=== PATIENT | male | born 1955 | race African-American/Black ===

== ENCOUNTER 2018-05-22 07:38 | Day surgery (SDC) ==
[2018-05-22] MEDS: TETRACAINE 0.5% UNIT-DOSE OP PRN ×2 (09:20→09:45)
[2018-05-22] MEDS: BETADINE OPTH PREP OP PRN ×2 (09:20→09:45)
[2018-05-22] MEDS: CYCLOGYL 2% OPTH OP PRN ×3 (09:21→09:31)
[2018-05-22] MEDS ORDERED: ZOFRAN 4 MG/2 ML IVP ONE (09:27)
[2018-05-22] MEDS ORDERED: BRIMONIDINE TARTRATE 0.2% OPTH SOL OP PRN (09:27)
[2018-05-22] MEDS ORDERED: LIDOCAINE 1% 20 ML MDV ID STA (09:27)
[2018-05-22 09:34] VITALS: TEMP 98
[2018-05-22] MEDS: BSS WITH EPINEPHRINE OP ONE ×2 (09:50→10:02)
[2018-05-22] MEDS: LIDOCAINE 1%/PHENYLEPHRINE 1.5% BSS (SURGERY) INTRAOCULA ONE ×2 (09:51→10:02)
[2018-05-22] MEDS: DEX-MOXI-KETOR OPTH INJ 1/0.5/0.4 MG/ML IO ONE ×2 (09:51→10:02)
[2018-05-22] MEDS ORDERED: SUBLIMAZE ONE (09:53)
[2018-05-22] MEDS ORDERED: VERSED ONE (09:53)
[2018-05-24 08:55] VITALS: BP 128/68
== END 2018-05-22 10:55 | disposition home or self-care (01) ==
LOC: SURG 07:38
PROVIDERS: ATTEND Ophthalmology
DX: H25.812 Combined forms of age-related cataract, left eye (principal)

== ENCOUNTER 2018-06-05 08:04 | Day surgery (SDC) ==
[2018-06-05] MEDS: TETRACAINE 0.5% UNIT-DOSE OP PRN ×2 (09:35→10:14)
[2018-06-05] MEDS: BETADINE OPTH PREP OP PRN ×2 (09:35→10:14)
[2018-06-05] MEDS: CYCLOGYL 2% OPTH OP PRN ×3 (09:36→09:46)
[2018-06-05] MEDS ORDERED: DEX-MOXI-KETOR OPTH INJ 1/0.5/0.4 MG/ML IO ONE (09:41)
[2018-06-05] MEDS ORDERED: LIDOCAINE 1%/PHENYLEPHRINE 1.5% BSS (SURGERY) INTRAOCULA ONE (09:41)
[2018-06-05] MEDS ORDERED: LIDOCAINE 1% 20 ML MDV ID STA (09:41)
[2018-06-05] MEDS ORDERED: ZOFRAN 4 MG/2 ML IVP ONE (09:41)
[2018-06-05] MEDS ORDERED: BSS WITH EPINEPHRINE OP ONE (09:41)
[2018-06-05] MEDS ORDERED: BRIMONIDINE TARTRATE 0.2% OPTH SOL OP PRN (09:41)
[2018-06-05] MEDS ORDERED: VERSED ONE (10:22)
[2018-06-05] MEDS ORDERED: SUBLIMAZE ONE (10:22)
[2018-06-05] MEDS ORDERED: ZOFRAN 4 MG/2 ML ONE (10:22)
[2018-06-05 14:03] VITALS: TEMP 98.2
[2018-06-07 08:55] VITALS: BP 125/51
== END 2018-06-05 11:20 | disposition home or self-care (01) ==
LOC: SURG 08:04
PROVIDERS: ATTEND Ophthalmology
DX: H25.811 Combined forms of age-related cataract, right eye (principal)